=== PATIENT | female | born 1955 | race Caucasian/White ===

== ENCOUNTER 2021-07-13 11:09 | Emergency (ER) | payer OTHER ==
[2021-07-13 11:51] LABS: BASOPHIL 0.2 % (0-2); EOSINOPHIL 0 % (0-7); HCT 42.4 % (37.0-47.0); HGB 13.8 g/dl (12.5-16.0); LYMPHOCYTE 11.2 % (15-48); MCH 28.8 pg (25.0-31.0); MCHC 32.5 g/dL (32.0-36.0); MCV 88.3 fL (78.0-100.0); MONOCYTE 6.1 % (0-12); MPV 9.9 fL (6.0-9.5); NEUTROPHIL 81.2 % (41-80); NRBC 0; PLT 201 K/uL (150-400); RDW 14.3 % (11.5-14.0)
[2021-07-13 12:19] LABS: ALBUMIN 3.7 g/dL (3.4-5.0); BILIRUBIN - TOTAL 0.6 mg/dL (0.2-1.0); BUN/CREAT RATIO (CALC) 17.6 RATIO; CREATININE 1.02 mg/dL (0.51-0.95); GLOBULIN (CALCULATION) 2.9 g/dL; POTASSIUM 3.8 mmol/L (3.5-5.1); TOTAL PROTEIN 6.6 g/dL (6.4-8.2)
[2021-07-13 12:20] LABS: LACTIC ACID 1.4 mmol/L (0.4-1.9)
[2021-07-13] MEDS ORDERED: PREDNISONE 20MG20 MG PO (12:58)
[2021-07-13] MEDS ORDERED: AZITHROMYCIN250 MG PO (12:58)
[2021-07-13] MEDS ORDERED: ZOFRAN4 M1 PO (12:58)
[2021-07-13 13:37] LABS: BILIRUBIN NEGATIVE (NEGATIVE); BLOOD TRACE-INTACT Ery/uL (NEGATIVE); CLARITY CLEAR (CLEAR); COLOR YELLOW (YELLOW); GLUCOSE (U) NORMAL (NORMAL); LEUKOCYTES 1+ Leu/uL (NEGATIVE); NITRITE NEGATIVE (NEGATIVE); PROTEIN TRACE (LOW) mg/dL (NEGATIVE); SPECIFIC GRAVITY <=1.005 (1.001-1.030); UROBILINOGEN 0.2 mg/dL (0.2-1.0)
[2021-07-13 14:01] LABS: BACTERIA TRACE; MUCOUS TRACE; URINARY RBC RARE
== END 2021-07-13 13:21 | disposition home or self-care (01) ==
LOC: FER 11:09
PROVIDERS: Emergency Medicine
DX: U07.1 COVID-19 (principal); J12.82 Pneumonia due to coronavirus disease 2019; Z88.2 Allergy status to sulfonamides
CPT/HCPCS: 36415; 71045; 80053; 81001; 83605; 85025; 87088; J2405; J7040; J7512